=== PATIENT | female | born 1950 | race Caucasian/White ===

== ENCOUNTER → 2016-06-04 | Outpatient (CLI) | payer MEDICARE, MEDICAID | LOC: OD 09:56 | PROVIDERS: ATTEND Physician Assistant | DX: M54.42 Lumbago with sciatica, left side (principal) | CPT/HCPCS: 72110 ==

== ENCOUNTER → 2016-06-23 | Outpatient (CLI) | payer MEDICARE, MEDICAID ==
--- NOTE | 2016-06-23 09:43 | WOMENS IMAGING REPORT ---
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 TECHNIQUE: Dual-Energy X-ray Absorptiometry (DEXA) of the AP Spine and Hip. LIMITATIONS: None. FINDINGS: LUMBAR SPINE: The bone mineral density (BMD) measured from L1-L4 in the AP projection correlates with a T-score of +3.9, which is NORMAL as defined by the World Health Organization. HIP: The bone mineral density (BMD) measured in the LEFT FEMORAL NECK AT THE hip correlates with a T-score of +0.3, which is NORMAL as defined by the World Health Organization. COMMENT: The World Health Organization defines low BMD as follows: T-score: Normal: Greater than -1.0 Osteopenia: Between -1.0 and -2.5 Osteoporosis: Less than -2.5 without fractures Established osteoporosis: Less than -2.5 with fractures In general, you may wish to consider: Diagnosis Treatment Follow-up DEXA Normal BMD Prevention 2-3 years Osteopenia Prevention/Therapy 1-2 years Osteoporosis Therapy Yearly TECHNICAL DOCUMENTATION: JOB ID: [id number] [employer] All Rights Reserved
== END ==
LOC: WI 09:11
PROVIDERS: ATTEND Physician Assistant
DX: M81.0 Age-related osteoporosis without current pathological fracture (principal)
CPT/HCPCS: 77080

== ENCOUNTER 2018-08-07 13:49 | Emergency (ER) | payer MEDICARE ==
[2018-08-07] MEDS ORDERED: IBUPROFEN 600 MG TABLET PO ONE (15:41)
--- NOTE | 2018-08-07 15:42 | ER Document Report ---
ED Medical Screen (RME) - General Chief Complaint: Rectal Pain Stated Complaint: BUTTOCKS PAIN Time Seen by Provider: 08/07/18 15:35 Primary Care Provider: KIMBERLEE ORDONEZ PA [Primary Care Provider] - Follow up as needed Notes: Patient is a 67-year-old female that presents to the emergency department for chief complaint of right hip pain after a fall 3 days ago. She also complains of having dysuria. ROS: Other than noted above, the 12 point review of systems was reviewed with the patient and were negative, all pertinent findings are included in the HPI. PHYSICAL EXAMINATION: Vital signs reviewed. GENERAL: Well-appearing, well-nourished and in no acute distress. HEAD: Atraumatic, normocephalic. EYES: Pupils equal round extraocular movements intact, conjunctiva are normal. ENT: Nares patent NECK: Normal range of motion CV: Heart regular rate and rhythm LUNGS: No respiratory distress Musculoskeletal: Pain with internal and external rotation of the right hip. NEUROLOGICAL: Normal speech PSYCH: Normal mood, normal affect. MDM: Patient seen and examined for rapid initial assessment. Vital signs reviewed. A comprehensive ED assessment and evaluation of the patient, analysis of test resu lts and completion of the medical decision making process will be conducted by additional ED providers. *Note is created using voice recognition software and may contain spelling, syntax or grammatical errors. TRAVEL OUTSIDE OF THE [place] IN LAST 30 DAYS: No - Related Data Allergies/Adverse Reactions: beclomethasone dipropionate [From Qvar] Adverse Reaction (Intermediate, Verified 08/07/18 13:53) Vomiting Past Medical History - Past Medical History Cardiac Medical History: Reports: Hx Hypercholesterolemia, Hx Hypertension Pulmonary Medical History: Reports: Hx Asthma, Hx COPD GI Medical History: Reports: Hx Gastroesophageal Reflux Disease Psychiatric Medical History: Reports: Hx Depression Past Surgical History: Reports: Hx Appendectomy, Hx Cardiac Catheterization, Hx Cardiac Surgery - CABG X 3, Hx Cholecystectomy, Hx Hysterectomy - Immunizations Hx Diphtheria, Pertussis, Tetanus Vaccination: Yes Physical Exam - Vital signs Vitals: Temp Pulse Resp BP Pulse Ox 97.8 F 101 H 20 150/91 H 95 08/07/18 13:54 08/07/18 13:54 08/07/18 13:54 08/07/18 13:54 08/07/18 13:54 Course - Vital Signs Vital signs: Temp Pulse Resp BP Pulse Ox 97.8 F 101 H 20 150/91 H 95 08/07/18 13:54 08/07/18 13:54 08/07/18 13:54 08/07/18 13:54 08/07/18 13:54 Doctor's Discharge - Discharge Referrals: KIMBERLEE ORDONEZ PA [Primary Care Provider] - Follow up as needed
--- NOTE | 2018-08-07 16:16 | RADIOLOGY REPORT (SQ) ---
EXAM DESCRIPTION: HIP RIGHT AP/LATERAL COMPLETED DATE/TIME: 08/07/2018 4:09 pm REASON FOR STUDY: right hip pain after fall COMPARISON: None. NUMBER OF VIEWS: Two views. TECHNIQUE: AP pelvis and additional frog-leg view of the right hip. LIMITATIONS: None. FINDINGS: MINERALIZATION: Normal. RIGHT HIP: No fracture or dislocation. No worrisome bone lesions. LEFT HIP: No fracture or dislocation. No worrisome bone lesions. PUBIS AND ISCHIUM: No fracture. PELVIS: No fracture. SACRUM: No fracture or dislocation. No worrisome bone lesions. LOWER LUMBAR SPINE: No fracture or dislocation. No worrisome bone lesions. No significant disc disea se. SOFT TISSUES: No findings. OTHER: No other significant finding. IMPRESSION: NEGATIVE STUDY OF THE RIGHT HIP. NO RADIOGRAPHIC EVIDENCE OF ACUTE INJURY. TECHNICAL DOCUMENTATION: JOB ID: [id number] [employer]- All Rights Reserved Reading location - IP/workstation name: [email or web address]
[2018-08-07 17:44] LABS: APPEARANCE,URINE CLEAR; BILIRUBIN,URINE NEGATIVE (NEGATIVE); COLOR,URINE YELLOW; GLUCOSE, URINE NEGATIVE (NEGATIVE); KETONES,URINE NEGATIVE (NEGATIVE); LEUKOCYTE ESTERASE,URINE SMALL (NEGATIVE); NITRITE,URINE POSITIVE (NEGATIVE); PROTEIN,URINE NEGATIVE (NEGATIVE); URINE SPECIFIC GRAVITY 1.023
[2018-08-07] MEDS ORDERED: CEPHALEXIN 500 MG CAPSULE PO ONE (18:04)
--- NOTE | 2018-08-07 18:04 | ER Document Report ---
ED General - General Chief Complaint: Hip Pain Stated Complaint: BUTTOCKS PAIN Time Seen by Provider: 08/07/18 15:35 Primary Care Provider: KIMBERLEE ORDONEZ PA [PHYSICIAN FURNITURE INSPECTOR] - Follow up in 3-5 days MAIDA MAYBERRY DO [ACTIVE STAFF] - Follow up in 3-5 days Notes: Patient is a 67-year-old female that presents to the emergency department for chief complaint of right hip pain after fall. Patient states that she fell 3 days ago onto her right buttock, and since since been having some pain particularly with range of motion and getting up and down however she has been able to ambulate with her cane without too much difficulty. She has been taking Tylenol at home without much relief of her pain so she decided come to the emergency department to be evaluated. When she fell she states she did hit her head, but did not lose consciousness, denies having any neck pain, numbness, weakness or tingling. She also complains of having dysuria and urinary frequency, as a secondary complaint, denies having any fevers, chills, nausea, vomiting or flank pain. Past Medical History: Osteoarthritis, CAD, hyperlipidemia, hypertension Past Surgical History: CABG x3, appendectomy Social History: Former smoker, denies alcohol or drug use. Family History: Reviewed and noncontributory for presenting illness Allergies: Reviewed, see documented allergy list. REVIEW OF SYSTEMS: Other than noted above, the 12 point review of systems was reviewed with the patient and were negative, all pertinent findings are included in the HPI. PHYSICAL EXAMINATION: Vital signs reviewed, nursing noted reviewed. GENERAL: Elderly female, no acute distress HEAD: There is a small 3 mm healed scalp laceration, no active bleeding. No depressed skull fracture is palpated EYES: Eyes appear normal, extraocular movements intact, sclera anicteric, conjunctiva are normal. ENT: nares patent, oropharynx clear without exudates. Moist mucous membranes. NECK: Normal range of motion, supple without lymphadenopathy, no midline tend erness. LUNGS: Breath sounds clear to auscultation bilaterally and equal. No wheezes rales or rhonchi. HEART: Regular rate and rhythm without murmurs ABDOMEN: Soft, nontender, normoactive bowel sounds. No rebound, guarding, or rigidity. No masses appreciated. EXTREMITIES: Tenderness to palpation over the right greater trochanter, there is some pain with range of motion with internal and external rotation in both the lateral aspect of the hip and towards the groin. Overall however she has good range of motion, no pitting or edema. The rest the patient's joints including the knees and ankles bilaterally are unremarkable, as well as the upper extremities, the shoulders are nontender, either of the elbows or wrists. NEUROLOGICAL: No focal neurological deficits. Moves all extremities s pontaneously Motor and sensory grossly intact on exam. PSYCH: Normal mood, normal affect. SKIN: Warm, Dry, normal turgor, no rashes or lesions noted on exposed skin TRAVEL OUTSIDE OF THE [place] IN LAST 30 DAYS: No - Related Data Allergies/Adverse Reactions: beclomethasone dipropionate [From Qvar] Adverse Reaction (Intermediate, Verified 08/07/18 13:53) Vomiting Past Medical History - Social History Smoking Status: Former Smoker Family History: Reviewed & Not Pertinent Patient has suicidal ideation: No Patient has homicidal ideation: No - Past Medical History Cardiac Medical History: Reports: Hx Hypercholesterolemia, Hx Hypertension Pulmonary Medical History: Reports: Hx Asthma, Hx COPD Renal/ Medical History: Denies: Hx Peritoneal Dialysis GI Medical History: Reports: Hx Gastroesophageal Reflux Disease Psychiatric Medical History: Reports: Hx Depression Past Surgical History: Reports: Hx Appendectomy, Hx Cardiac Catheterization, Hx Cardiac Surgery - CABG X 3, Hx Cholecystectomy, Hx Hysterectomy - Immunizations Hx Diphtheria, Pertussis, Tetanus Vaccination: Yes Hx Pneumococcal Vaccination: 02/13/11 Physical Exam - Vital signs Vitals: Temp Pulse Resp BP Pulse Ox 97.8 F 101 H 20 150/91 H 95 08/07/18 13:54 08/07/18 13:54 08/07/18 13:54 08/07/18 13:54 08/07/18 13:54 Course - Re-evaluation Re-evalutation: Patient seen and examined vital signs reviewed. Laboratory data and imaging were ordered as appropriate for the patient's presenting symptoms and complaint, with consideration of any critical or life threatening conditions that may be associated with their obtained history and exam as noted above. Patient was treated with p.o. Motrin for her pain, prior labs reviewed, no history of chronic kidney disease Results were reviewed when available and demonstrated negative imaging for the right hip, no evidence of fracture, UA was performed, and was nitrite positive and concerning for urinary tract infection. Patient was given a dose of Keflex in the emergency department. The patient was re-evaluated and was stable Evaluation was most consistent with right hip contusion, which patient has been able to bear weight, low suspicion for occult fracture do not need to pursue CT imaging at this time, I have her follow-up with her primary care, she is also treated for her UTI, given a prescription for Keflex and culture is sent. She was given a prescription for tramadol to take for breakthrough pain which she was agreeable to. Results were discussed with the patient at this point, after careful consideration I feel that that patient can be discharged from the emergency department, the patient was educated treatments and reasons to return to the emergency department based on their presumed diagnosis as noted above, they were advised to followup with a primary care physician in 2-3 days. Patient was agreeable to plan of care. *Note is created using voice recognition software and may contain spelling, syntax or grammatical errors. Laboratory 08/07/18 16:45 Urine Color YELLOW Urine Appearance CLEAR Urine pH 6.0 Ur Specific [place] 1.023 Urine Protein NEGATIVE Urine Glucose (UA) NEGATIVE Urine Ketones NEGATIVE Urine Blood NEGATIVE Urine Nitrite POSITIVE H Urine Bilirubin NEGATIVE Urine Urobilinogen 4.0 H Ur Leukocyte Esterase SMALL H Urine WBC (Auto) 17 Urine RBC (Auto) 2 Urine Bacteria (Auto) 3+ Squamous Epi Cells Auto 3 Urine Mucus (Auto) MOD Urine Ascorbic Acid NEGATIVE Hip/Pelvis X-Ray 08/07/18 15:41 IMPRESSION: NEGATIVE STUDY OF THE RIGHT HIP. NO RADIOGRAPHIC EVIDENCE OF ACUTE INJURY. - Vital Signs Vital signs: Temp Pulse Resp BP Pulse Ox 97.9 F 97 18 148/89 H 96 08/07/18 18:39 08/07/18 18:39 08/07/18 18:39 08/07/18 18:39 08/07/18 18:39 - Laboratory Laboratory results interpreted by me: 08/07/18 16:45 Urine Nitrite POSITIVE H Urine Urobilinogen 4.0 H Ur Leukocyte Esterase SMALL H Discharge - Discharge Clinical Impression: Contusion, hip Qualifiers: Encounter type: initial encounter Laterality: right Qualified Code(s): S70.01XA - Contusion of right hip, initial encounter UTI (urinary tract infection) Qualifiers: Urinary tract infection type: site unspecified Hematuria presence: without hematuria Qualified Code(s): N39.0 - Urinary tract infection, site not specified Condition: Stable Disposition: HOME, SELF-CARE Instructions: Contusion ([facility]), Urinary Tract Infection ([facility]) Additional Instructions: Please complete your entire course of antibiotics, take the medication as prescribed for pain, and please follow-up with orthopedic surgery, to be reevaluated as an outpatient. If your pain worsens or you are unable to walk, d o not hesitate to return to the emergency department. Prescriptions: RX: Cephalexin Monohydrate [Keflex 500 mg Capsule] 500 mg PO BID 7 Days #14 capsule RX: Tramadol HCl [Ultram] 50 mg PO Q8H PRN #15 tablet PRN Reason: hip pain Referrals: KIMBERLEE ORDONEZ PA [PHYSICIAN FURNITURE INSPECTOR] - Follow up in 3-5 days MAIDA MAYBERRY DO [ACTIVE STAFF] - Follow up in 3-5 days
[2018-08-07 18:43] VITALS: BP 148/89
== END 2018-08-07 18:39 | disposition home or self-care (01) ==
LOC: ER 13:49
DX: S70.01XA Contusion of right hip, initial encounter (principal); N39.0 Urinary tract infection, site not specified; M25.551 Pain in right hip; R30.0 Dysuria; R35.0 Frequency of micturition; W19.XXXA Unspecified fall, initial encounter; Z87.891 Personal history of nicotine dependence; I10 Essential (primary) hypertension; J44.9 Chronic obstructive pulmonary disease, unspecified
CPT/HCPCS: 99283; 87086; 87088; 81001; 87186; 73502; A9270 ×2

== ENCOUNTER → 2019-03-15 | Outpatient (CLI) | payer MEDICAID, MEDICARE ==
--- NOTE | 2019-03-15 11:50 | RADIOLOGY REPORT (SQ) ---
EXAM DESCRIPTION: CT HEAD WITHOUT COMPLETED DATE/TIME: 03/15/2019 9:28 am REASON FOR STUDY: R44.3 HALLUCINATIONS, UNSPECIFIED R44.3 HALLUCINATIONS, UNSPECIFIED COMPARISON: None. TECHNIQUE: Axial images acquired through the brain without intravenous contrast. Images reviewed wi th bone, brain and subdural windows. Additional sagittal and coronal reconstructions were generated. Images stored on PACS. All CT scanners at this facility use dose modulation, iterative reconstruction, and/or weight based d osing when appropriate to reduce radiation dose to as low as reasonably achievable (ALARA). [facility]: Dose Right [facility]: CareDose [facility]: Dose Right [facility]: Teradose 4D [facility]: Moasis RADIATION DOSE: CT Rad equipment meets quality standard of care and radiation dose reduction techniq ues were employed. CTDIvol: 48.6 mGy. DLP: 930 mGy-cm. mGy. LIMITATIONS: None. FINDINGS: VENTRICLES: Prominent. CEREBRUM: No masses. No hemorrhage. No midline shift. Areas of low density in the white matter mos t likely due to chronic micro-vascular ischemic change. No evidence for acute infarction. CEREBELLUM: No masses. No hemorrhage. No alteration of density. No evidence for acute infarction. EXTRAAXIAL SPACES: Mild age-related involutional change. No fluid collections. No masses. ORBITS AND GLOBE: No intra- or extraconal masses. Normal contour of globe without masses. CALVARIUM: No fracture. PARANASAL SINUSES: No fluid or mucosal thickening. SOFT TISSUES: No mass or hematoma. OTHER: No other significant finding. IMPRESSION: MILD CHRONIC CHANGES OF ATROPHY AND MICROVASCULAR ISCHEMIA. NO ACUTE PROCESS. EVIDENCE OF ACUTE STROKE: NO. TECHNICAL DOCUMENTATION: JOB ID: [id number] Quality ID # [id number]: Final reports with documentation of one or more dose reduction techniques (e.g., Au tomated exposure control, adjustment of the mA and/or kV according to patient size, use of iterative reconstruction technique) 2010 [employer]- All Rights Reserved Reading location - IP/workstation name: [email or web address]
== END ==
LOC: RAD 09:11
PROVIDERS: ATTEND Physician Assistant
DX: R44.3 Hallucinations, unspecified (principal); R41.3 Other amnesia; G31.9 Degenerative disease of nervous system, unspecified
CPT/HCPCS: 70450